=== PATIENT | male | born 1970 | race Caucasian/White ===

== ENCOUNTER 2021-08-06 10:05 | Outpatient (CLI) | payer OTHER, SELFPAY ==
[2021-08-06 11:36] LABS: SARS-CoV-2 RNA PCR Negative (Negative)
== END 2021-08-06 10:06 | disposition home or self-care (01) ==
LOC: CHSLAB 10:08
PROVIDERS: Physician Assistant; PCP Family Medicine; Visit Provider Nurse Practitioner Pediatrics
DX: Z20.822 Contact with and (suspected) exposure to COVID-19 (principal)
CPT/HCPCS: C9803; U0003; U0005

== ENCOUNTER → 2021-09-18 09:50 | Outpatient (CLI) | payer OTHER, SELFPAY ==
[2021-09-18 14:15] LABS: SARS-CoV-2 RNA PCR Positive
[2021-09-18 14:55] LABS: Influenza A QL RT-PCR Negative (Negative); Influenza B QL RT-PCR Negative (Negative)
== END ==
PROVIDERS: PCP Family Medicine; Visit Provider Physician Assistant
DX: R50.9 Fever, unspecified (principal); U07.1 COVID-19
CPT/HCPCS: 87502; 87804; C9803; U0003; U0005